=== PATIENT | male | born 1960 | race Caucasian/White ===

== ENCOUNTER 2021-06-26 12:56 | Inpatient (IN) | payer OTHER ==
[2021-06-26 13:50] VITALS: BMI 30.3
[2021-06-26] MEDS ORDERED: IBUPROFEN 400 MG TABLET (FP) PO PRN (18:10)
[2021-06-26] MEDS ORDERED: MAG HYDROX/AL HYDROX/SIMETH 30 ML UNIT-DOSE CUP PO PRN (18:10)
[2021-06-26] MEDS ORDERED: MAGNESIUM CITRATE 300 ML BOTTLE PO PRN (18:10)
[2021-06-26] MEDS ORDERED: BISMUTH SUBSALICYLATE 524 MG/30 ML PO PRN (18:10)
[2021-06-26] MEDS ORDERED: METHOCARBAMOL 500 MG TABLET PO PRN (18:10)
[2021-06-26] MEDS ORDERED: ONDANSETRON *ODT* 4 MG TABLET SL PRN (18:10)
[2021-06-26] MEDS ORDERED: MENTHOL/PHENOL 1 EACH UD MM PRN (18:10)
[2021-06-26] MEDS ORDERED: MAGNESIUM HYDROX 2400MG/30ML ORAL SUSPENSION 30 ML CUP PO PRN (18:10)
[2021-06-26] MEDS ORDERED: ACETAMINOPHEN 325 MG TABLET (FP) PO PRN ×2 (18:10)
[2021-06-26] MEDS ORDERED: SODIUM CHLORIDE NASAL SPRAY 44 ML BOTTLE NS PRN (18:21)
[2021-06-26] MEDS ORDERED: methaDONE HCL 10 MG TABLET (FOR DETOX USE ONLY) PO ONE (20:47)
[2021-06-26] MEDS ORDERED: clonazePAM 0.5 MG ODT TABLETS SL PRN (20:47)
[2021-06-26] MEDS ORDERED: cloNIDine HCL 0.1 MG TABLET PO PRN (20:47)
[2021-06-26] MEDS ORDERED: hydrOXYzine PAMOATE 25 MG CAPSULE (FP) PO PRN (20:48)
[2021-06-26] MEDS ORDERED: LORazepam 1 MG TABLET PO PRN (21:09)
[2021-06-26] MEDS: THIAMINE HCL 100 MG TABLET (FP) PO SCH (21:36)
[2021-06-26] MEDS ORDERED: hydrOXYzine PAMOATE 25 MG CAPSULE (FP) PO SCH (22:00)
[2021-06-26] MEDS: LORazepam 2 MG TABLET PO SCH (23:41)
[2021-06-26] MEDS: MELATONIN 5 MG TABLETS PO SCH (23:42)
[2021-06-27] MEDS: LORazepam 2 MG TABLET PO SCH ×4 (07:06→22:34)
[2021-06-27] MEDS ORDERED: methaDONE HCL 10 MG TABLET (FOR DETOX USE ONLY) ONE (10:22)
[2021-06-27] MEDS: PRENATAL VITAMINS W/ FOLIC ACID TABLET (FP) PO SCH (10:24)
[2021-06-27 11:38] LABS: HEMATOCRIT 36.5 % (35.4-49); HEMOGLOBIN 12.4 GM/dL (11.7-16.9); MCH 31.5 pg (25.7-33.7); MCHC 34.1 g/dl (32.0-35.9); MEAN CELL VOLUME 92.5 fl (80-96); MEAN PLT VOLUME 9.8 fl (7.5-11.1); PLATELET COUNT 210 10^3/uL (134-434); RBC 3.94 M/mm3 (4.00-5.60); RDW 14.2 % (11.9-15.9); WHITE BLOOD COUNT 5.2 K/mm3 (4.0-10.0)
[2021-06-27 11:55] LABS: ALBUMIN 3.4 g/dl (3.4-5.0); BLOOD UREA NITROGEN 8.9 mg/dL (7-18); CALCIUM 8.3 mg/dL (8.5-10.1)
[2021-06-27 11:58] LABS: CREATININE 0.6 mg/dL (0.55-1.3)
[2021-06-27 11:59] LABS: BILIRUBIN,TOTAL 0.5 mg/dL (0.2-1); TOT PROT 6.9 g/dl (6.4-8.2)
[2021-06-27] MEDS: THIAMINE HCL 100 MG TABLET (FP) PO SCH (22:34)
[2021-06-27] MEDS: MELATONIN 5 MG TABLETS PO SCH (22:34)
[2021-06-28] MEDS: LORazepam 1 MG TABLET PO SCH ×2 (06:04→10:20)
[2021-06-28 09:41] VITALS: BP 112/76; PULSE 100; TEMP 96.8
[2021-06-28] MEDS ORDERED: methaDONE HCL 10 MG TABLET (FOR DETOX USE ONLY) PO ONE (10:00)
[2021-06-28] MEDS: PRENATAL VITAMINS W/ FOLIC ACID TABLET (FP) PO SCH (10:20)
[2021-06-29] MEDS ORDERED: LORazepam 0.5 MG TABLET PO PRN
[2021-06-29] MEDS ORDERED: LORazepam 0.5 MG TABLET PO SCH (05:00)
[2021-06-30] MEDS ORDERED: LORazepam 0.5 MG TABLET PO ONE (05:00)
[2021-06-30] MEDS ORDERED: methaDONE HCL 10 MG TABLET (FOR DETOX USE ONLY) PO ONE (10:00)
== END 2021-06-28 13:49 | disposition left against medical advice (07) | DRG 770 ==
LOC: YASAS 12:56 → UNDOADMIN 18:19 → Y3N 18:19
PROVIDERS: ADMIT Allergy & Immunology; ATTEND Allergy & Immunology
PROC: HZ2ZZZZ Detoxification Services for Substance Abuse Treatment (ICD-10-PCS; principal; 2021-06-26)
DX: F11.23 Opioid dependence with withdrawal (principal); F10.230 Alcohol dependence with withdrawal, uncomplicated; Z87.891 Personal history of nicotine dependence
CPT/HCPCS: 36415; 80053; 85027; 86780; C9803; U0003; U0005

== ENCOUNTER 2023-03-09 15:19 | Inpatient (IN) | payer OTHER ==
[2023-03-09 19:22] VITALS: BMI 27.7
[2023-03-09] MEDS ORDERED: ONDANSETRON *ODT* 4 MG TABLET SL PRN (21:49)
[2023-03-09] MEDS ORDERED: guaiFENesin 600 MG TABLET.ER (FP) PO PRN (21:49)
[2023-03-09] MEDS ORDERED: P-EPHED 60MG/TRIPROLIDI 2.5MG TABLET PO PRN (21:49)
[2023-03-09] MEDS ORDERED: BENZONATATE 200 MG CAPSULE PO PRN (21:49)
[2023-03-09] MEDS ORDERED: BISMUTH SUBSALICYLATE 524 MG/30 ML PO PRN (21:49)
[2023-03-09] MEDS ORDERED: POLYETHYLENE GLYCOL (HEALTHYLAX) 3350 17 GM PACKET PO PRN (21:49)
[2023-03-09] MEDS ORDERED: NALOXONE HCL 0.4 MG/ML VIAL IM PRN (21:49)
[2023-03-09] MEDS ORDERED: IBUPROFEN 600 MG TABLET (FP) PO PRN (21:49)
[2023-03-09] MEDS ORDERED: IBUPROFEN 400 MG TABLET (FP) PO PRN (21:49)
[2023-03-09] MEDS ORDERED: MAG HYDROX/AL HYDROX/SIMETH 30 ML UNIT-DOSE CUP PO PRN (21:49)
[2023-03-09] MEDS ORDERED: ACETAMINOPHEN 325 MG TABLET (FP) PO PRN (21:49)
[2023-03-09] MEDS ORDERED: DICYCLOMINE HCL 10 MG CAPSULE PO PRN (21:49)
[2023-03-09] MEDS ORDERED: MAGNESIUM HYDROX 2400MG/30ML ORAL SUSPENSION 30 ML CUP PO PRN (21:49)
[2023-03-09] MEDS ORDERED: BENZOCAINE/MENTHOL (CHLORASEPTIC ) LOZENGE MM PRN (21:49)
[2023-03-09] MEDS ORDERED: LOPERAMIDE HCL 2 MG CAPSULE PO PRN (21:49)
[2023-03-09] MEDS ORDERED: NALOXONE HCL (KLOXXADO) 8 MG SPRAY NS PRN (21:49)
[2023-03-09] MEDS ORDERED: HYDROCORTISONE 0.5% TOPICAL CREAM 30 GM TUBE TP PRN (21:52)
[2023-03-09] MEDS: THIAMINE HCL 100 MG TABLET (FP) PO SCH (23:02)
[2023-03-09] MEDS: MELATONIN 5 MG TABLETS PO PRN (23:06)
[2023-03-10] MEDS ORDERED: methaDONE HCL 10 MG TABLET (FOR DETOX USE ONLY) PO ONE ×2 (09:25→11:30)
[2023-03-10] MEDS: PRENATAL VITAMINS W/ FOLIC ACID TABLET (FP) PO SCH (10:33)
[2023-03-10 11:18] LABS: HEMATOCRIT 36.3 % (35.4-49); HEMOGLOBIN 12.3 GM/dL (11.7-16.9); MCH 31.2 pg (25.7-33.7); MEAN PLT VOLUME 9.8 fl (7.5-11.1); PLATELET COUNT 213 10^3/uL (134-434); RBC 3.95 M/mm3 (4.00-5.60); RDW 13.3 % (11.9-15.9); WHITE BLOOD COUNT 5.6 K/mm3 (4.0-10.0)
[2023-03-10 11:43] LABS: CALCIUM 8.8 mg/dL (8.5-10.1)
[2023-03-10 11:44] LABS: ALBUMIN 3.2 g/dl (3.4-5.0); BLOOD UREA NITROGEN 9.4 mg/dL (7-18)
[2023-03-10 11:47] LABS: CREATININE 0.6 mg/dL (0.55-1.3)
[2023-03-10 11:48] LABS: TOT PROT 6.7 g/dl (6.4-8.2)
[2023-03-10 11:50] LABS: BILIRUBIN,TOTAL 0.8 mg/dL (0.2-1)
[2023-03-10] MEDS: MELATONIN 5 MG TABLETS PO PRN (22:15)
[2023-03-10] MEDS: cloNIDine HCL 0.1 MG TABLET PO PRN (22:15)
[2023-03-10] MEDS: THIAMINE HCL 100 MG TABLET (FP) PO SCH (22:15)
[2023-03-11] MEDS: PRENATAL VITAMINS W/ FOLIC ACID TABLET (FP) PO SCH ×3 (09:52→10:56)
[2023-03-11] MEDS: cloNIDine HCL 0.1 MG TABLET PO PRN (14:15)
[2023-03-11] MEDS: hydrOXYzine PAMOATE 25 MG CAPSULE (FP) PO PRN ×2 (14:15→22:20)
[2023-03-11] MEDS: MELATONIN 5 MG TABLETS PO PRN (22:19)
[2023-03-11] MEDS: THIAMINE HCL 100 MG TABLET (FP) PO SCH (22:20)
[2023-03-12] MEDS: hydrOXYzine PAMOATE 25 MG CAPSULE (FP) PO PRN (05:56)
[2023-03-12 06:39] VITALS: RESP 18
[2023-03-12 09:39] VITALS: BP 126/90; PULSE 102; TEMP 98
[2023-03-12] MEDS ORDERED: methaDONE HCL 10 MG TABLET (FOR DETOX USE ONLY) PO ONE (10:00)
[2023-03-12] MEDS: PRENATAL VITAMINS W/ FOLIC ACID TABLET (FP) PO SCH (10:01)
[2023-03-12] MEDS: cloNIDine HCL 0.1 MG TABLET PO PRN (10:01)
[2023-03-14] MEDS ORDERED: methaDONE HCL 10 MG TABLET (FOR DETOX USE ONLY) PO ONE (10:00)
== END 2023-03-12 12:03 | disposition home or self-care (01) | DRG 773 ==
LOC: YASAS 15:19 → Y6N 22:17
PROVIDERS: ADMIT Allergy & Immunology; ATTEND Surgery
PROC: HZ2ZZZZ Detoxification Services for Substance Abuse Treatment (ICD-10-PCS; principal; 2023-03-09)
DX: F11.23 Opioid dependence with withdrawal (principal); Z87.891 Personal history of nicotine dependence
CPT/HCPCS: 36415; 80053; 85027; 86780; C9803-CS; U0003; U0005

== ENCOUNTER 2025-03-07 11:37 | Inpatient (IN) | payer OTHER ==
[2025-03-07 12:18] VITALS: BMI 26.3
[2025-03-07] MEDS ORDERED: P-EPHED 60MG/TRIPROLIDI 2.5MG TABLET PO PRN (13:06)
[2025-03-07] MEDS ORDERED: LOPERAMIDE HCL 2 MG CAPSULE PO PRN (13:06)
[2025-03-07] MEDS ORDERED: guaiFENesin 600 MG TABLET.ER (FP) PO PRN (13:06)
[2025-03-07] MEDS ORDERED: METHOCARBAMOL 500 MG TABLET PO PRN (13:06)
[2025-03-07] MEDS ORDERED: ACETAMINOPHEN 325 MG TABLET (FP) PO PRN (13:06)
[2025-03-07] MEDS ORDERED: IBUPROFEN 600 MG TABLET (FP) PO PRN (13:06)
[2025-03-07] MEDS ORDERED: BISMUTH SUBSALICYLATE 524 MG/30 ML PO PRN (13:06)
[2025-03-07] MEDS ORDERED: POLYETHYLENE GLYCOL (HEALTHYLAX) 3350 17 GM PACKET PO PRN (13:06)
[2025-03-07] MEDS ORDERED: BENZONATATE 200 MG CAPSULE PO PRN (13:06)
[2025-03-07] MEDS ORDERED: MAGNESIUM HYDROX 2400MG/30ML ORAL SUSPENSION 30 ML CUP PO PRN (13:06)
[2025-03-07] MEDS ORDERED: MAG HYDROX/AL HYDROX/SIMETH 30 ML UNIT-DOSE CUP PO PRN (13:06)
[2025-03-07] MEDS ORDERED: NALOXONE (NARCAN) HCL 4 MG/0.1 ML SPRAY NS PRN (13:06)
[2025-03-07] MEDS ORDERED: BENZOCAINE/MENTHOL (CHLORASEPTIC ) LOZENGE MM PRN (13:06)
[2025-03-07] MEDS ORDERED: ONDANSETRON *ODT* 4 MG TABLET SL PRN (13:06)
[2025-03-07] MEDS ORDERED: IBUPROFEN 400 MG TABLET (FP) PO PRN (13:06)
[2025-03-07] MEDS: MELATONIN 5 MG TABLETS PO SCH (22:23)
[2025-03-07] MEDS: THIAMINE 100 MG TABLET PO SCH (22:23)
[2025-03-08] MEDS ORDERED: cloNIDine HCL 0.1 MG TABLET PO PRN (06:23)
[2025-03-08] MEDS ORDERED: methaDONE HCL 10 MG TABLET (FOR DETOX USE ONLY) PO PRN ×2 (06:23→07:02)
[2025-03-08] MEDS ORDERED: methaDONE HCL 10 MG TABLET PO PRN (07:01)
[2025-03-08] MEDS: methaDONE HCL 10 MG TABLET (FOR DETOX USE ONLY) PO ONE (07:08)
[2025-03-08] MEDS: PRENATAL VITAMINS W/ FOLIC ACID TABLET (FP) PO SCH (09:36)
[2025-03-08 11:30] LABS: HEMATOCRIT 39.6 % (40.1-51.0); HEMOGLOBIN 12.9 g/dL (13.7-17.5); MCHC 32.6 g/dl (32.3-36.5); MEAN CELL VOLUME 93.4 fl (79.0-92.2); MEAN PLT VOLUME 10.8 fl (9.4-12.4); PLATELET COUNT 291 x10^3/uL (163-337); RDW 12.6 % (12.2-16.4)
[2025-03-08 12:53] LABS: POTASSIUM 4.7 mmol/L (3.5-5.1)
[2025-03-08 12:58] LABS: ALBUMIN 3.6 g/dl (3.4-5.0); BLOOD UREA NITROGEN 9.4 mg/dL (7-18)
[2025-03-08 13:00] LABS: CALCIUM 9.7 mg/dL (8.5-10.1)
[2025-03-08 13:02] LABS: CREATININE 0.6 mg/dL (0.55-1.3)
[2025-03-08 13:03] LABS: BILIRUBIN,TOTAL 0.4 mg/dL (0.2-1); TOT PROT 7.3 g/dl (6.4-8.2)
[2025-03-08 13:07] VITALS: RESP 18
[2025-03-08 20:49] VITALS: BP 125/75; PULSE 89; TEMP 97.6
[2025-03-10] MEDS ORDERED: methaDONE HCL 10 MG TABLET (FOR DETOX USE ONLY) PO ONE (10:00)
[2025-03-12] MEDS ORDERED: methaDONE HCL 10 MG TABLET (FOR DETOX USE ONLY) PO ONE (10:00)
== END 2025-03-08 20:36 | disposition home or self-care (01) | DRG 897 ==
LOC: YASAS 11:37 → Y3N 14:47
PROVIDERS: ADMIT Allergy & Immunology; ATTEND Allergy & Immunology
PROC: HZ2ZZZZ Detoxification Services for Substance Abuse Treatment (ICD-10-PCS; principal; 2025-03-07)
DX: F10.230 Alcohol dependence with withdrawal, uncomplicated (principal); F11.20 Opioid dependence, uncomplicated; F25.9 Schizoaffective disorder, unspecified; G47.00 Insomnia, unspecified; Z87.891 Personal history of nicotine dependence
CPT/HCPCS: 36415; 80053; 80305; 80307; 85027; 86780; 93005; 93010